=== PATIENT | female | born 1980 | race Caucasian/White ===

== ENCOUNTER 2019-03-05 14:12 | Emergency (ER) | payer OTHER ==
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
[2019-03-05 14:21] VITALS: BP 135/86; PULSE 62; TEMP 98.3; BMI 29.5
[2019-03-05] MEDS ORDERED: IBUPROFEN 600 MG TABLET (FP) PO ONE ×2 (14:21→14:30)
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
== END 2019-03-05 15:01 | disposition home or self-care (01) ==
LOC: JERFT 14:12
DX: M25.511 Pain in right shoulder (principal); V43.52XA Car driver injured in collision with other type car in traffic accident, initial encounter; Y92.414 Local residential or business street as the place of occurrence of the external cause; Y93.89 Activity, other specified; Y99.8 Other external cause status
CPT/HCPCS: 84703; 99281-25